=== PATIENT | female | born 1950 | race Caucasian/White ===

== ENCOUNTER 2017-01-23 06:01 | Day surgery (SDC) | payer MEDICARE, OTHER ==
[~2017-01-23 06:01] MED LIST: Dextrose 5%-0.45% NaCl 1,000 ML IV SCH; Sodium Chloride 0.9% 10 ML Syringe FLUSH PRN
[2017-01-23] MEDS ORDERED: Midazolam 1 MG/ML 2 ML SDV IV ONE ×11 (06:02→07:51)
[2017-01-23] MEDS ORDERED: fentaNYL 100 MCG/2 ML SDV IV ONE ×5 (06:02→07:09)
[2017-01-23] MEDS ORDERED: fentaNYL 100 MCG/2 ML SDV ONE (06:17)
[2017-01-23] MEDS ORDERED: Midazolam 1 MG/ML 2 ML SDV ONE (06:17)
--- NOTE | 2017-01-23 08:48 | OR ---
DATE: 01/23/2017 PROCEDURE: Incomplete colonoscopy and multiple pinch biopsies. INSTRUMENT USED: PCF-H180AL Olympus video colonoscope. PREMEDICATIONS: Fentanyl 200 mcg intravenous, Versed 6 mg intravenous. Nasal O2 cannula. The procedure was done under pulse oximetry, BP recording, and playground monitor. INDICATIONS: The patient with chronic diarrhea, unexplained, and not responsive to medical measures. Colonoscopic examination is done for detection of any polypoid lesions and removal, biopsies to be obtained for any evidence of microscopic colitis, endoscopic hemostasis therapy if needed. DESCRIPTION OF PROCEDURE: Initial rectal exam was unremarkable. Rigid anoscopy was normal. The colonoscope was passed with ease. Few scattered diverticula were noted in the distal left colon. The scope was passed up to the hepatic flexure area. The colon was found to be tortuous and redundant, and repeated attempts were unsuccessful in passing the scope beyond the hepatic flexure to visualize proximal areas. No bleeding was noted from any of the visualized areas at the commencement of the examination. No stricture. No vascular ectasia. No large isolated ulcerations seen. No evidence of diffuse inflammatory bowel disease in the form of friability, contact bleeding, or ulcerations. No polyp or tumor mass identified. Probing the proximal sides of folds and flexures, using adequate distention and clearing up the stool material, withdrawal of the scope was made. Multiple pinch biopsies were taken from the normal-appearing mucosa, the mid transverse colon, mid descending colon, and rectosigmoid, and sent for any histopathologic evidence of microscopic colitis. No bleeding was noted from any of the visualized areas at the completion of examination. IMPRESSION: Diverticulosis. The patient tolerated the procedure well. [facility] /[id number]
[2017-01-23 10:03] VITALS: BP 100/67
== END 2017-01-23 09:50 | disposition home or self-care (01) ==
LOC: DL.ENDO 06:01
PROVIDERS: ATTEND Internal Medicine Gastroenterology
PROC: 0DBL8ZX Excision of Transverse Colon, Via Natural or Artificial Opening Endoscopic, Diagnostic (ICD-10-PCS; principal; 2017-01-23)
PROC: 0DBN8ZX Excision of Sigmoid Colon, Via Natural or Artificial Opening Endoscopic, Diagnostic (ICD-10-PCS; 2017-01-23)
PROC: 0DBM8ZX Excision of Descending Colon, Via Natural or Artificial Opening Endoscopic, Diagnostic (ICD-10-PCS; 2017-01-23)
DX: R19.7 Diarrhea, unspecified (principal)
CPT/HCPCS: 45380; J2250; J3010; J7042; 88305

== ENCOUNTER 2017-11-20 07:03 | Day surgery (SDC) | payer MEDICARE, BC ==
[~2017-11-20 07:03] MED LIST changes: -Dextrose 5%-0.45% NaCl 1,000 ML IV SCH; +Lactated Ringers 1,000 ML IV SCH
[2017-11-20] MEDS ORDERED: Midazolam 1 MG/ML 2 ML SDV IV ONE (07:04)
[2017-11-20] MEDS ORDERED: Propofol 200 MG/20 ML SDV IV ONE (07:04)
[2017-11-20] MEDS ORDERED: fentaNYL 100 MCG/2 ML SDV IV ONE (07:04)
[2017-11-20] MEDS ORDERED: Bupivacaine 0.5% 30 ML SDV ONE (07:39)
[2017-11-20] MEDS ORDERED: Lidocaine 1% 30 ML SDV ONE (07:39)
[2017-11-20] MEDS ORDERED: Lidocaine 1% 30 ML SDV INJECT ONE ×2 (08:38→09:27)
[2017-11-20] MEDS ORDERED: Bupivacaine 0.5% 30 ML SDV INJECT ONE ×2 (08:38→09:27)
[2017-11-20] MEDS ORDERED: Acetaminophen/oxyCODONE 325-5 MG Tab PO PRN (09:59)
--- NOTE | 2017-11-20 10:05 | PCM.OPNOTE ---
- General Post-Op/Procedure Note Date of Surgery/Procedure: 11/20/17 Operative Procedure(s): right foot second interspace neuroma excision Pre Op Diagnosis: right foot 2nd interspace neuroma Post-Op Diagnosis: janell Anesthesia Technique: Local, MAC Primary Surgeon: Ammy Ortiz Anesthesia Provider: Simón Gautam Pathology: right foot nerve EBL in mLs: 5 Complications: none Condition: Good Free Text/Narrative:: Pt tolerated procedure well and was transported to recovery with vascular status intact to right foot. Well padded compression dressing applied.
[2017-11-20 11:33] VITALS: BP 125/88
--- NOTE | 2017-11-21 09:17 | OR ---
DATE: 11/20/2017 PREOPERATIVE DIAGNOSIS: Right foot second interspace neuroma. POSTOPERATIVE DIAGNOSIS: Right foot second interspace neuroma. PROCEDURE PERFORMED: Right foot second interspace neuroma excision. ANESTHESIA: Local MAC with preoperative local block of 10 mL of 1:1 mixture of 1% lidocaine plain and 0.5% Marcaine plain. TOURNIQUET TIME: 37 minutes, pneumatic ankle tourniquet. ESTIMATED BLOOD LOSS: Minimal. SPECIMEN: Right foot nerve. COMPLICATIONS: None. INDICATIONS: María is a 67-year-old female who presents with right foot ball of the foot pain. This has been going on for many years now. She states she had neuromas removed from her left foot, she also had neuroma pain in her right foot at that time, and they tried multiple different options for both feet. She failed conservative options and ended up having the left foot neuromas removed from a different help desk support. That was 5 years ago. Now, she would like the neuromas removed in her right foot. The patient voiced good understanding of the proposed procedure and possible complications and elects to have surgery at this time. X-rays from before were negative for any bony pathology in the right foot. DESCRIPTION OF PROCEDURE: The patient was taken to the operating room lying in the supine position. After adequate anesthesia induction as described above, the right foot was prepped and draped in usual sterile fashion. A pneumatic ankle tourniquet was inflated to 225 mmHg. Attention was then directed to the dorsal aspect of the right foot overlying the second interspace, where a 3 cm linear incision was made. Sharp and blunt dissection were made down to the level of the second interspace being careful to gently retract all neurovascular bundles. The intermetatarsal ligament was incised and transected, and the neuroma was clearly visualized at the plantar foot. The neuroma was transected as far distally as possible past the bifurcation and then was also transected as far proximally as possible and allowed to retract back into the plantar musculature of the foot. The area was inspected for any further area of concern, and there was none. The area was irrigated with copious amounts of sterile saline. Deep dissection was closed with 3-0 Vicryl, and skin closure was completed with 4-0 nylon. The area was dressed with Xeroform to the incision site, fluffs, Webril, and a well-padded compression López wrap dressing. She tolerated the procedure and anesthesia well and left the operating room for recovery with vital signs stable and in good condition with vascular status intact to the right foot as noted by immediate hyperemia upon deflation of the ankle tourniquet. The patient was then discharged home when she met hospital discharge requirements. [facility] /[id number]
--- NOTE | 2017-11-25 13:32 | EKG ---
11/20/2017 - DAVID DICK VICKI - TIME: 7:56 a.m. FINDINGS: As per my reading, sinus bradycardia at 56. [facility] /[id number]
== END 2017-11-20 11:00 | disposition home or self-care (01) ==
LOC: DL.SDS 07:03
PROVIDERS: ATTEND Podiatrist
DX: G57.61 Lesion of plantar nerve, right lower limb (principal); E78.5 Hyperlipidemia, unspecified; Z79.899 Other long term (current) drug therapy; Z88.8 Allergy status to other drugs, medicaments and biological substances; Z88.6 Allergy status to analgesic agent
CPT/HCPCS: 01480; 28080; J2250; J2704; J3010; J7120; J3490